=== PATIENT | female | born 1995 | race Two or more races ===

== ENCOUNTER → 2025-04-14 | Outpatient (CLI) | payer BC, SELFPAY ==
[2025-04-13 17:56] LABS: HCG Qualitative,Urine Negative
--- NOTE | 2025-04-14 12:00 | XR_ITS ---
Examination: CT abdomen and pelvis without contrast. Coronal 3-D reconstructions. Sagittal 2-D reconstructions. Date and time of exam:April 14, 2025 1301 hours INDICATIONS: Outside abdominal sonogram one month ago right hydronephrosis CTDI: vol (mGy): 6.30 DLP: (mGycm): 303 Technique: Axial images of the abdomen have been obtained, 3 mm slice thickness Intravenous contrast material has not been administered. Low dose protocols were performed. One or more of the following dose reduction techniques were used; automated exposure control, adjustment of the mA and/or KV according to patient size, use of iterative reconstruction technique. Findings: No focal liver or splenic lesions No gallstones No pancreatic or adrenal mass Numerous bilateral renal calculi and nephrocalcinosis, the largest calculus 5 mm in the lower pole left kidney No hydronephrosis or ureteral calculi No bowel obstruction Normal appendix Anteverted uterus with intrauterine device satisfactory position No bladder mass or bladder calculi Moderate disc narrowing L5-S1 IMPRESSION: Numerous bilateral nonobstructing renal calculi
== END | disposition home or self-care (01) ==
PROVIDERS: PCP Physician Assistant Medical; Referring Provider Physician Assistant Medical; Visit Provider Physician Assistant Medical
DX: N20.0 Calculus of kidney (principal); Z32.00 Encounter for pregnancy test, result unknown
CPT/HCPCS: 74176; 81025

== ENCOUNTER → 2025-08-04 | Outpatient (BNVA) | payer BC, SELFPAY | END | disposition home or self-care (01) | PROVIDERS: PCP Physician Assistant Medical; Referring Provider Physician Assistant Medical; Visit Provider Urology | DX: N20.0 Calculus of kidney (principal); Z87.440 Personal history of urinary (tract) infections | CPT/HCPCS: 99212; G0463 ==